=== PATIENT | female | born 1955 | race Caucasian/White ===

== ENCOUNTER 2019-07-05 13:24 | Inpatient (IN) | payer OTHER ==
[2019-07-05] MEDS ORDERED: NORMAL SALINE 1000 ML 1,000 ML IV ONE ×2 (14:49→16:27)
--- NOTE | 2019-07-05 14:51 | ER Document Report ---
ED Medical Screen (RME) - General Chief Complaint: Abdominal Pain Stated Complaint: ABDOMINAL PAIN Time Seen by Provider: 07/05/19 14:40 Mode of Arrival: Ambulatory Information source: Patient Notes: Patient is a 63-year-old female presenting from her primary care provider's office with complaints of right upper quadrant pain. Patient reports that her primary care provider took blood and she had an elevated white blood count and they also did an ultrasound which showed gallstones and sludge. Patient reports her pain has been ongoing for 2 days. She denies any vomiting or diarrhea. Exam: Tenderness to palpation to the right upper quadrant. Exam limited due to position in triage. No acute distress noted. I have greeted and performed a rapid initial assessment of this patient. A comprehensive ED assessment and evaluation of the patient, analysis of test results and completion of the medical decision making process will be conducted by additional ED providers. I have specifically instructed the patient or family members with the patient to immediately return to any nursing staff should anything change in the patient's condition or with their chief complaint. This medical record was dictated with voice recognizing software. There may be grammatical, syntax errors that are unintended. TRAVEL OUTSIDE OF THE [place] IN LAST 30 DAYS: No - Related Data Allergies/Adverse Reactions: No Known Allergies Allergy (Verified 07/05/19 14:37) Physical Exam - Vital signs Vitals: Temp Pulse Resp BP Pulse Ox 98.6 F 100 18 113/69 95 07/05/19 13:44 07/05/19 13:44 07/05/19 13:44 07/05/19 13:44 07/05/19 13:44 Course - Vital Signs Vital signs: Temp Pulse Resp BP Pulse Ox 98.6 F 100 18 113/69 95 07/05/19 13:44 07/05/19 13:44 07/05/19 13:44 07/05/19 13:44 07/05/19 13:44
[2019-07-05 15:39] LABS: HEMATOCRIT 40.3 % (36.0-47.0); HEMOGLOBIN 13.5 g/dL (12.0-15.5); MEAN CORPUSCULAR HGB CONC 33.5 g/dL (32.0-36.0); MEAN CORPUSCULAR VOLUME 87 fl (80-97); PLATELET COUNT 341 10^3/uL (150-450); RED BLOOD COUNT 4.65 10^6/uL (3.72-5.28); RED CELL DISTRIBUTION WIDTH 13.9 % (11.5-14.0)
[2019-07-05 15:52] LABS: ALBUMIN 4.4 g/dL (3.5-5.0); ALKALINE PHOSPHATASE 97 U/L (38-126); ANION GAP 17 (5-19); ASPARTATE AMINO TRANSFERASE 20 U/L (14-36); BILIRUBIN,DIRECT 0.4 mg/dL (0.0-0.4); BILIRUBIN,TOTAL 1.2 mg/dL (0.2-1.3); BLOOD UREA NITROGEN 20 mg/dL (7-20); CALCIUM 10.3 mg/dL (8.4-10.2); CARBON DIOXIDE 26 mmol/L (22-30); CHLORIDE 91 mmol/L (98-107); GLUCOSE 214 mg/dL (75-110); POTASSIUM 4.1 mmol/L (3.6-5.0); TOTAL PROTEIN 8.2 g/dL (6.3-8.2)
[2019-07-05 16:01] LABS: ABSOLUTE LYMPHOCYTES# (MANUAL) 2.3 10^3/uL (0.5-4.7); ABSOLUTE MONOCYTES # (MANUAL) 1.7 10^3/uL (0.1-1.4); BAND NEUTROPHILS % (MANUAL) 3 % (3-5); BASOPHILS % (MANUAL) 1 % (0-2); EOSINOPHILS % (MANUAL) 1 % (0-6); LYMPHOCYTES % (MANUAL) 7 % (13-45); METAMYELOCYTES % (MANUAL) 1 % (0); MONOCYTES % (MANUAL) 5 % (3-13); PLATELET COMMENT ADEQUATE; RBC MORPHOLOGY COMMENT NORMO-CYTIC/CHROMIC; SEGMENTED NEUTROPHILS % (MAN) 82 % (42-78); TOTAL CELLS COUNTED 100
--- NOTE | 2019-07-05 16:06 | RADIOLOGY REPORT (SQ) ---
EXAM DESCRIPTION: U/S ABDOMEN LIMITED W/O DOP COMPLETED DATE/TIME: 07/05/2019 3:54 pm REASON FOR STUDY: RUQ pain COMPARISON: None. TECHNIQUE: Dynamic and static grayscale images acquired of the abdomen and recorded on PACS. Luicnao amirah selected color Doppler and spectral images recorded. LIMITATIONS: None. FINDINGS: PANCREAS: No masses. Visualized pancreatic duct normal caliber. LIVER: No masses. Echotexture normal. LIVER VASCULATURE: Normal directional flow of the main portal vein and hepatic veins. GALLBLADDER: The gallbladder is distended measuring up to 11 cm in diameter. There is pericholecysti c edema. The wall is thickened measured up to 3.7 mm. There are stones and sludge. ULTRASOUND-DETECTED AGUILAR'S SIGN: Negative. INTRAHEPATIC DUCTS AND COMMON DUCT: CBD and intrahepatic ducts normal caliber. No filling defects. INFERIOR VENA CAVA: Normal flow. AORTA: No aneurysm. RIGHT KIDNEY: Normal size. Normal echogenicity. No solid or suspicious masses. No hydronephrosis. No calcifications. PERITONEAL AND RIGHT PLEURAL SPACE: No ascites or effusions. OTHER: No other significant finding. IMPRESSION: Cholelithiasis. Thickened gallbladder wall and pericholecystic fluid. Negative sonogra phic Aguilar sign. Findings remain suspicious for acute cholecystitis. TECHNICAL DOCUMENTATION: JOB ID: [id number] [employer]- All Rights Reserved Reading location - IP/workstation name: [email or web address]
[2019-07-05] MEDS ORDERED: PIPERACILLIN/TAZOBACTAM 3.375 GM VIAL IV ONE (16:19)
--- NOTE | 2019-07-05 16:26 | ER Document Report ---
ED General - General Chief Complaint: Abdominal Pain Stated Complaint: ABDOMINAL PAIN Time Seen by Provider: 07/05/19 14:40 Mode of Arrival: Ambulatory TRAVEL OUTSIDE OF THE [place] IN LAST 30 DAYS: No - HPI Notes: Patient is a 63-year-old female with history of CVA (on baby aspirin daily), hypertension, hypercholesterolemia, type 2 diabetes who presents complaining of right upper quadrant abdominal pain for the past 2 days with decreased p.o. intake. Patient states that she did have nausea and vomiting initially, but has not had anything p.o. so is not aware if she will still want to vomit. Patient was sent by her family doctor as they noticed an elevated white count, stones, and sludge on ultrasound. The pain does not radiate. She still urinating normally and having normal bowel movements. Denies drug allergies. No other concerns or complaints. Denies any headache, fever, neck pain, URI, sore throat, chest pain, palpitations, syncope, cough, shortness of breath, wheeze, dyspnea, nausea/vomiting/diarrhea, urinary retention, dysuria, hematuria, or rash. - Related Data Allergies/Adverse Reactions: No Known Allergies Allergy (Verified 07/05/19 14:37) Past Medical History - General Information source: Patient - Social History Smoking Status: Never Smoker Family History: Reviewed & Not Pertinent Patient has suicidal ideation: No Patient has homicidal ideation: No Review of Systems - Review of Systems -: Yes All other systems reviewed and negative Physical Exam - Vital signs Vitals: Temp Pulse Resp BP Pulse Ox 98.6 F 100 18 113/69 95 07/05/19 13:44 07/05/19 13:44 07/05/19 13:44 07/05/19 13:44 07/05/19 13:44 - Notes Notes: PHYSICAL EXAMINATION: GENERAL: Well-appearing, well-nourished and in no acute distress. HEAD: Atraumatic, normocephalic. EYES: Pupils equal round and reactive to light, extraocular movements intact, s clera anicteric, conjunctiva are normal. ENT: Nares patent and without discharge. oropharynx clear without exudates. No tonsilar hypertrophy or erythema. Moist mucous membranes. NECK: Normal range of motion, supple without lymphadenopathy LUNGS: Breath sounds clear to auscultation bilaterally and equal. No wheezes rales or rhonchi. HEART: Regular rate and rhythm without murmurs, rubs, gallops. ABDOMEN: Soft, nondistended abdomen. + RUQ tenderness. + mild guarding. Normal bowel sounds present. No CVA tenderness bilaterally. Musculoskeletal: FROM to passive/active. Strength 5+/5. Extremities: No cyanosis, clubbing, or edema b/l. Peripheral pulses 2+. Capillary refill less than 3 seconds. NEUROLOGICAL: Normal speech, normal gait. PSYCH: Normal mood, normal affect. SKIN: Warm, Dry, normal turgor, no rashes or lesions noted. Course - Re-evaluation Re-evalutation: 07/05/19 16:24 Patient is an afebrile 63-year-old female who presents with acute cholecystitis and leukocytosis. Vitals are acceptable without significant tachycardia, tachypnea, or hypoxia. PE significant for right upper quadrant tenderness. Patient has an elevated white count at 33,000 and a creatinine of 1.73. There are no previous labs to compare to. LFTs otherwise unremarkable at this time. See right upper quadrant abdominal ultrasound results which shows acute cholecystitis. Patient is currently otherwise nontoxic-appearing. Patient has been n.p.o. for the past couple days. Patient receiving fluids. She does not want anything for any pain or nausea at this time. I did call and speak with our surgeon, Dr. Wynn, who would like [facility] as well. He would like medicine to admit for probable surgery in the morning. I called and spoke with Dr. Colindres, hospitalist, who will review the protocol on who should be admitting this patient and call me back. Pt in agreement with plan otherwise. 07/05/19 16:38 Dr. Granados will be admitting the patient and is here to eval the patient. - Vital Signs Vital signs: Temp Pulse Resp BP Pulse Ox 98.6 F 100 18 113/69 95 07/05/19 13:44 07/05/19 13:44 07/05/19 13:44 07/05/19 13:44 07/05/19 13:44 - Laboratory Result Diagrams: 07/05/19 15:20 07/05/19 15:20 Laboratory results interpreted by me: 07/05/19 07/05/19 15:20 15:20 WBC 33.3 H* Seg Neuts % (Manual) 82 H Lymphocytes % (Manual) 7 L Metamyelocytes % 1 H Abs Neuts (Manual) 28.6 H Abs Monocytes (Manual) 1.7 H Abs Basophils (Manual) 0.3 H Sodium 134.4 L Chloride 91 L Creatinine 1.73 H Est GFR ( Amer) 36 L Est GFR (MDRD) Non-Af 30 L Glucose 214 H Calcium 10.3 H Discharge - Discharge Clinical Impression: Acute cholecystitis Leukocytosis Qualifiers: Leukocytosis type: bandemia Qualified Code(s): D72.825 - Bandemia Condition: Stable Disposition: ADMITTED INPATIENT Admitting Provider: Darwin (Hospitalist) Unit Admitted: [facility]
[2019-07-05] MEDS ORDERED: ONDANSETRON HCL INJ/PF 4 MG/2 ML SDV IV PRN (17:10)
--- NOTE | 2019-07-05 17:10 | PDOC H&P ---
History of Present Illness Admission Date/PCP: HONEY QUINTANILLA MD History of Present Illness: DEANA WHEAT is a 63 year old patient female with past medical history of obesity, hypertension, hyperlipidemia, history of stroke 9 years ago, type 2 diabetes mellitus hypertension presented with chief complaint of right upper quadrant. Patient reported that she has been in her usual baseline state of health up until when she started to have right upper quadrant pain exacerbated by movement and palpation. For this problem patient visited her primary care physician office where they did ultrasound and referred to ER. Patient has associated nausea, vomiting and decreased appetite. The pain is nonradiating. Patient denies fever, chills, palpitation, diaphoresis, chest pain, cough. She endorses nausea and vomiting but no diarrhea or change in bowel habits. No urinary complaints as well. No headache, dizziness or blurry vision. Her abdominal ultrasound reported as cholelithiasis. Thickened gallbladder wall and pericholecystic fluid. Her white cell count is 33,000 and her creatinine is 1.73. Surgical team consulted and referred with the patient to the hospitalist for admission since patient has underlying comorbidities. Past Medical History Cardiac Medical History: Reports: Hyperlipidema, Hypertension Endocrine Medical History: Reports: Diabetes Mellitus Type 2 Social History Smoking Status: Never Smoker Frequency of Alcohol Use: None Hx Recreational Drug Use: No - Advance Directive Resuscitation Status: Full Code Family History Family History: Reviewed & Not Pertinent, DM, Hypertension Parental Family History Reviewed: Yes Children Family History Reviewed: Yes Sibling(s) Family History Reviewed.: Yes Medication/Allergy Allergies/Adverse Reactions: No Known Allergies Allergy (Verified 07/05/19 14:37) Review of Systems Constitutional: PRESENT: anorexia Eyes: ABSENT: visual disturbances Ears: ABSENT: hearing changes Cardiovascular: ABSENT: chest pain, dyspnea on exertion, edema, orthropnea, palpitations Respiratory: ABSENT: cough, hemoptysis Gastrointestinal: PRESENT: abdominal pain, nausea, vomiting Genitourinary: ABSENT: dysuria, hematuria Musculoskeletal: ABSENT: joint swelling Integumentary: ABSENT: rash, wounds Neurological: ABSENT: abnormal gait, abnormal speech, confusion, dizziness, focal weakness, syncope Psychiatric: ABSENT: anxiety, depression, homidical ideation, suicidal ideation Endocrine: ABSENT: cold intolerance, heat intolerance, polydipsia, polyuria Hematologic/Lymphatic: ABSENT: easy bleeding, easy bruising Physical Exam Vital Signs: Temp Pulse Resp BP Pulse Ox 98.6 F 100 18 113/69 95 07/05/19 13:44 07/05/19 13:44 07/05/19 13:44 07/05/19 13:44 07/05/19 13:44 Intake & Output 07/04/19 07/05/19 07/06/19 06:59 06:59 06:59 Intake Total 1000 Balance 1000 Weight 93.2 kg General appearance: PRESENT: cooperative, obese Head exam: PRESENT: atraumatic Eye exam: PRESENT: conjunctiva pink Mouth exam: PRESENT: dry mucosa Neck exam: ABSENT: carotid bruit, JVD, lymphadenopathy, thyromegaly Respiratory exam: PRESENT: clear to auscultation carlos. ABSENT: rales, rhonchi, wheezes Cardiovascular exam: PRESENT: RRR. ABSENT: diastolic murmur, rubs, systolic murmur GI/Abdominal exam: PRESENT: guarding Neurological exam: PRESENT: alert, awake, oriented to person, oriented to place, oriented to time, oriented to situation Results Laboratory Results: 07/05/19 15:20 07/05/19 15:20 07/05/19 07/05/19 15:20 15:20 WBC 33.3 H* RBC 4.65 Hgb 13.5 Hct 40.3 MCV 87 MCH 29.0 MCHC 33.5 RDW 13.9 Plt Count 341 Seg Neutrophils % Not Reportable Sodium 134.4 L Potassium 4.1 Chloride 91 L Carbon Dioxide 26 Anion Gap 17 BUN 20 Creatinine 1.73 H Est GFR ( Amer) 36 L Glucose 214 H Calcium 10.3 H Total Bilirubin 1.2 AST 20 Alkaline Phosphatase 97 Total Protein 8.2 Albumin 4.4 Lipase 30.4 Impressions: Abdomen Ultrasound 07/05/19 14:49 IMPRESSION: Cholelithiasis. Thickened gallbladder wall and pericholecystic fluid. Negative sonographic Aguilar sign. Findings remain suspicious for acute cholecystitis. Assessment and Plan - Diagnosis (1) Acute cholecystitis Is this a current diagnosis for this admission?: Yes Plan: Patient has been started on IV Zosyn. Patient scheduled for possible laparoscopic cholecystectomy tomorrow. (2) Leukocytosis Qualifiers: Leukocytosis type: bandemia Qualified Code(s): D72.825 - Bandemia Is this a current diagnosis for this admission?: Yes Plan: We will monitor her white cell count. (3) Acute kidney injury Is this a current diagnosis for this admission?: Yes Plan: We will hydrate the patient gently and will avoid nephrotoxic agents. Monitor her renal function test. (4) Type 2 diabetes mellitus Is this a current diagnosis for this admission?: Yes Plan: Patient takes Januvia and metformin for her diabetes. I will hold her oral diabetic medication and put her on sliding scale. (5) Hypertension Qualifiers: Hypertension type: essential hypertension Qualified Code(s): I10 - Essential (primary) hypertension Is this a current diagnosis for this admission?: Yes Plan: Continue her home medication (6) Hyperlipidemia Qualifiers: Hyperlipidemia type: unspecified Qualified Code(s): E78.5 - Hyperlipidemia, unspecified Is this a current diagnosis for this admission?: Yes Plan: Continue her home medication (7) Obesity (BMI 30.0-34.9) Is this a current diagnosis for this admission?: Yes Plan: Patient encouraged and counseled to do lifestyle modification.
[2019-07-05] MEDS ORDERED: DEXTROSE 40% GEL 15 GM TUBE PO PRN ×2 (17:16)
[2019-07-05] MEDS ORDERED: GLUCAGON,HUMAN RECOMB 1 MG INJ IM PRN (17:16)
[2019-07-05] MEDS ORDERED: DEXTROSE 50%-WATER 25 GM/50 ML DISP.SYRIN IV PRN ×2 (17:16)
--- NOTE | 2019-07-05 17:37 | PDOC CONSULTATION ---
Consultation Consult Date: 07/05/19 Provider Consulted: KATHIE WINCHESTER Consult reason:: acute calculus cholecystitis History of Present Illness Admission Date/PCP: 07/05/19 16:56 HONEY QUINTNAILLA MD History of Present Illness: DEANA WHEAT is a 63 year old female with his history of diabetes mellitus on Januvia complain of right upper quadrant pains associated with nausea and vomiting and anorexia started 2 days ago. Denies any fever or chills. Denies fatty food intolerance. She had an ultrasound today which showed acute calculus cholecystitis. Her white count is elevated and she appears to be slightly dehydrated. Past Medical History Cardiac Medical History: Reports: Hyperlipidema, Hypertension Endocrine Medical History: Reports: Diabetes Mellitus Type 2 Past Surgical History Past Surgical History: Reports: Hysterectomy, Other - Laparoscopic umbilical hernia repair in 2008 with possible use of mesh Social History Smoking Status: Never Smoker Frequency of Alcohol Use: None Hx Recreational Drug Use: No - Advance Directive Resuscitation Status: Full Code Family History Family History: Reviewed & Not Pertinent, DM, Hypertension Parental Family History Reviewed: Yes Children Family History Reviewed: No Sibling(s) Family History Reviewed.: No Medication/Allergy Allergies/Adverse Reactions: No Known Allergies Allergy (Verified 07/05/19 14:37) Review of Systems Constitutional: PRESENT: as per HPI Gastrointestinal: PRESENT: abdominal pain, nausea, vomiting Physical Exam Vital Signs: Temp Pulse Resp BP Pulse Ox 98.6 F 100 18 113/69 95 07/05/19 13:44 07/05/19 13:44 07/05/19 13:44 07/05/19 13:44 07/05/19 13:44 Intake & Output 07/04/19 07/05/19 07/06/19 06:59 06:59 06:59 Intake Total 1000 Balance 1000 Weight 93.2 kg General appearance: PRESENT: mild distress Head exam: PRESENT: atraumatic Eye exam: PRESENT: conjunctiva pink Mouth exam: PRESENT: dry mucosa Neck exam: PRESENT: full ROM Respiratory exam: PRESENT: clear to auscultation carlos Cardiovascular exam: PRESENT: RRR Pulses: PRESENT: normal radial pulses Vascular exam: PRESENT: normal capillary refill GI/Abdominal exam: PRESENT: soft, tenderness - At right upper quadrant and epigastric areas Rectal exam: PRESENT: deferred Extremities exam: PRESENT: full ROM Musculoskeletal exam: PRESENT: ambulatory Neurological exam: PRESENT: alert, oriented to person, oriented to place, oriented to time, oriented to situation Psychiatric exam: PRESENT: appropriate affect Skin exam: PRESENT: normal color, warm Results Laboratory Results: 07/05/19 15:20 07/05/19 15:20 07/05/19 07/05/19 15:20 15:20 WBC 33.3 H* RBC 4.65 Hgb 13.5 Hct 40.3 MCV 87 MCH 29.0 MCHC 33.5 RDW 13.9 Plt Count 341 Seg Neutrophils % Not Reportable Sodium 134.4 L Potassium 4.1 Chloride 91 L Carbon Dioxide 26 Anion Gap 17 BUN 20 Creatinine 1.73 H Est GFR ( Amer) 36 L Glucose 214 H Calcium 10.3 H Total Bilirubin 1.2 AST 20 Alkaline Phosphatase 97 Total Protein 8.2 Albumin 4.4 Lipase 30.4 Impressions: Abdomen Ultrasound 07/05/19 14:49 IMPRESSION: Cholelithiasis. Thickened gallbladder wall and pericholecystic fluid. Negative sonographic Aguilar sign. Findings remain suspicious for acute cholecystitis. Assessment & Plan - Diagnosis (1) Cholelithiasis Is this a current diagnosis for this admission?: Yes (2) Acute cholecystitis Is this a current diagnosis for this admission?: Yes (3) Acute kidney injury Is this a current diagnosis for this admission?: Yes (4) Hypertension Qualifiers: Hypertension type: essential hypertension Qualified Code(s): I10 - Essential (primary) hypertension Is this a current diagnosis for this admission?: Yes (5) Leukocytosis Qualifiers: Leukocytosis type: bandemia Qualified Code(s): D72.825 - Bandemia Is this a current diagnosis for this admission?: Yes (6) Obesity (BMI 30.0-34.9) Is this a current diagnosis for this admission?: Yes (7) Type 2 diabetes mellitus Is this a current diagnosis for this admission?: Yes - Time Time Spent: 30 to 50 Minutes - Inpatient Certification Medical Necessity: Need For IV Fluids, Need for IV Antibiotics, Need for Surgery - Plan Summary Plan Summary: Plan on laparoscopic cholecystectomy tomorrow morning care of Dr. Salazar Continue IV antibiotics and n.p.o. from midnight Continue hydration Repeat labs in a.m.
--- NOTE | 2019-07-05 17:42 | RADIOLOGY REPORT (SQ) ---
EXAM DESCRIPTION: CHEST SINGLE VIEW COMPLETED DATE/TIME: 07/05/2019 5:32 pm REASON FOR STUDY: preop COMPARISON: None. EXAM PARAMETERS: NUMBER OF VIEWS: One view. TECHNIQUE: Single frontal radiographic view of the chest acquired. RADIATION DOSE: NA LIMITATIONS: None. FINDINGS: LUNGS AND PLEURA: No opacities, masses or pneumothorax. No pleural effusion. MEDIASTINUM AND HILAR STRUCTURES: No masses. Contour normal. HEART AND VASCULAR STRUCTURES: Heart normal in size. Normal vasculature. BONES: No acute findings. HARDWARE: None in the chest. OTHER: No other significant finding. IMPRESSION: NO ACUTE RADIOGRAPHIC FINDING IN THE CHEST. TECHNICAL DOCUMENTATION: JOB ID: [id number] [employer]- All Rights Reserved Reading location - IP/workstation name: [email or web address]
[2019-07-05] MEDS: PANTOPRAZOLE SODIUM 40 MG VIAL IV SCH (17:52)
[2019-07-05 20:57] LABS: APPEARANCE,URINE CLEAR; BILIRUBIN,URINE NEGATIVE (NEGATIVE); COLOR,URINE YELLOW; GLUCOSE, URINE NEGATIVE (NEGATIVE); KETONES,URINE NEGATIVE (NEGATIVE); LEUKOCYTE ESTERASE,URINE TRACE (NEGATIVE); NITRITE,URINE NEGATIVE (NEGATIVE); PROTEIN,URINE NEGATIVE (NEGATIVE); URINE SPECIFIC GRAVITY 1.008; UROBILINOGEN,URINE NEGATIVE mg/dL (<2.0)
[2019-07-05] MEDS: HEPARIN SOD (PORCINE) 5,000 UNIT/ML 1 ML VIAL SUBCUT SCH (21:05)
[2019-07-05] MEDS ORDERED: (PENDING PHARMACY ID) (Diltiazem Hcl [Diltiazem 24hr Er] 240 MG) PO SCH (22:00)
[2019-07-05] MEDS: PIPERACILLIN SODIUM/TAZOBACTAM 4.5 GM in NORMAL SALINE 100 ML IV SCH (22:10)
[2019-07-05] MEDS: DILTIAZEM HCL 240 MG CAPSULE.CR PO SCH (22:11)
[2019-07-05] MEDS: ATORVASTATIN CALCIUM 20 MG TABLET PO SCH (22:11)
[2019-07-05] MEDS: METOPROLOL TARTRATE 25 MG TABLET PO SCH (22:11)
[2019-07-05] MEDS: INSULIN LISPRO 100 UNIT/ML 3 ML VIAL SUBCUT SCH ×2 (22:12→22:19)
[2019-07-06] MEDS: NORMAL SALINE 1000 ML 1,000 ML IV PRN ×4 (02:07→19:15)
[2019-07-06] MEDS: PIPERACILLIN SODIUM/TAZOBACTAM 4.5 GM in NORMAL SALINE 100 ML IV SCH ×4 (03:41→17:46)
[2019-07-06] MEDS: HEPARIN SOD (PORCINE) 5,000 UNIT/ML 1 ML VIAL SUBCUT SCH ×3 (05:04→22:24)
[2019-07-06 06:20] LABS: HEMATOCRIT 31.8 % (36.0-47.0); MEAN CORPUSCULAR HEMOGLOBIN 28.9 pg (27.0-33.4); MEAN CORPUSCULAR HGB CONC 33.6 g/dL (32.0-36.0); MEAN CORPUSCULAR VOLUME 86 fl (80-97); PLATELET COUNT 223 10^3/uL (150-450); RED BLOOD COUNT 3.69 10^6/uL (3.72-5.28); RED CELL DISTRIBUTION WIDTH 14.2 % (11.5-14.0); WHITE BLOOD COUNT 19.4 10^3/uL (4.0-10.5)
[2019-07-06 06:25] LABS: HEMOGLOBIN 10.7 g/dL (12.0-15.5)
[2019-07-06 06:30] LABS: ANION GAP 12 (5-19); BLOOD UREA NITROGEN 19 mg/dL (7-20); CALCIUM 8.3 mg/dL (8.4-10.2); CARBON DIOXIDE 23 mmol/L (22-30); CHLORIDE 102 mmol/L (98-107); GLUCOSE 198 mg/dL (75-110); POTASSIUM 3.3 mmol/L (3.6-5.0)
[2019-07-06 06:47] LABS: ABSOLUTE LYMPHOCYTES# (MANUAL) 0.6 10^3/uL (0.5-4.7); ABSOLUTE MONOCYTES # (MANUAL) 2.9 10^3/uL (0.1-1.4); BASOPHILS % (MANUAL) 0 % (0-2); EOSINOPHILS % (MANUAL) 1 % (0-6); LYMPHOCYTES % (MANUAL) 3 % (13-45); MONOCYTES % (MANUAL) 15 % (3-13); SEGMENTED NEUTROPHILS % (MAN) 81 % (42-78); TOTAL CELLS COUNTED 100
[2019-07-06 06:48] LABS: PLATELET COMMENT ADEQUATE; RBC MORPHOLOGY COMMENT NORMO-CYTIC/CHROMIC; TOXIC VACUOLATION PRESENT
[2019-07-06] MEDS ORDERED: BUPIVACAINE HCL 0.25 % INJ/PF (2.5 MG/1 ML) 30 ML VIAL ONE (07:40)
[2019-07-06] MEDS: INSULIN LISPRO 100 UNIT/ML 3 ML VIAL SUBCUT SCH ×4 (08:24→22:26)
[2019-07-06] MEDS ORDERED: MIDAZOLAM 2 MG/2 ML INJ ONE (08:25)
[2019-07-06] MEDS ORDERED: HYDROMORPHONE HCL INJ/PF 2 MG/ML AMPULE ONE (08:25)
[2019-07-06] MEDS ORDERED: PROPOFOL INJ 200 MG/20 ML VIAL IV ONE (08:26)
[2019-07-06] MEDS ORDERED: FENTANYL CITRATE INJ/PF 100 MCG/2 ML AMPUL IV PRN ×3 (09:35)
[2019-07-06] MEDS ORDERED: PROMETHAZINE HCL INJ 25 MG/1 ML VIAL IV PRN ×2 (09:35)
[2019-07-06] MEDS ORDERED: ONDANSETRON HCL INJ/PF 4 MG/2 ML SDV IV PRN ×2 (09:35→10:54)
[2019-07-06] MEDS ORDERED: DIPHENHYDRAMINE HCL 50 MG/ML VIAL IV PRN (09:35)
--- NOTE | 2019-07-06 09:54 | EKG REPORT ---
SEVERITY:- BORDERLINE ECG - SINUS RHYTHM BORDERLINE T ABNORMALITIES, ANT-LAT LEADS : Confirmed by: Anoop Lancaster MD 06-Jul-2019 09:53:37
[2019-07-06] MEDS ORDERED: (PENDING PHARMACY ID) (Losartan/Hydrochlorothiazide [Losartan-Hctz 100-25 Mg Tab] 1 EACH) PO SCH (10:00)
[2019-07-06] MEDS ORDERED: KETOROLAC TROMETHAMINE 10 MG TABLET PO PRN (10:54)
--- NOTE | 2019-07-06 10:54 | Operative Report ---
Operative Report DATE OF SURGERY: 07/06/19 PREOPERATIVE DIAGNOSIS: Acute cholecystitis with cholelithiasis; dehydration; A cute renal insufficiency POSTOPERATIVE DIAGNOSIS: same OPERATION: Laparoscopic cholecystectomy; drain placement; extremely difficult modifier SURGEON: TRINITY FAJARDO ANESTHESIA: GA TISSUE REMOVED OR ALTERED: one GB with contents COMPLICATIONS: none ESTIMATED BLOOD LOSS: 150 cc INTRAOPERATIVE FINDINGS: see below PROCEDURE: After obtaining informed consent, the patient was taken to the operating room. General Anesthesia was induced; the arms were extended, and the abdomen was exposed, and prepped and draped in a sterile fashion. Instrumentation was set up for laparoscopic cholecystectomy. Surgical plan and surgical timeout were conducted. A vertical incision was made above the umbilicus, and a verres needle was inserted uneventfully into the peritoneal cavity. Pneumoperitoneum was established. The verres needle was removed and a 5 mm trocar was inserted and a 5 mm flexible laparoscope was inserted. Visualization of the peritoneal cavity confirmed safe uneventful entry. Under direct visualization 3 additional 5 mm ports were established, one in the subxiphoid position and second in the subcostal position. The findings were significant for an acutely inflamed gallbladder, consistent with acute cholecystitis. The gallbladder was a elongated, thickened, erythematous. Photos were taken. The gastroduodenal ligament, and the proximal transverse colon were bluntly taken off of the inferior surface of the gallbladder. The gallbladder was aspirated of approximately 60 cc of bile. Graspers were placed on the fundus and infundibulum of the neck of the gallbladder dissected out. This is a very tedious dissection requiring extended amount of time, suctioning, and electrocautery. We eventually got around the dominant cystic artery and it was dissected out nicely clipped twice proximally once distally divided with scissors. TriAngle of Calot was now opened up widely and photographs taken. Holes were made in the gallbladder which drained some more bile, and a small hole in the neck of the gallbladder as well. The cystic duct itself was approximately 4 to 5 mm diameter. It was photographed, clipped twice proximally once distally then divided with scissors. We now spent approximately 40 minutes taking the gallbladder off of the liver bed. This was extremely difficult due to the density of adhesions. Approximately 150 cc of blood was lost during the process. High intensity electrocautery, and Surgicel used for stabilization. There was a posterior branch of the cystic artery which was clipped and divided. 95% of the gallbladder was removed, with a very small portion of wall and mucosa left cauterized to the inferior surface of the liver. Gallbladder was pulled off away from the liver in fragments. It was placed in Endobag along with the very large gallstone and brought out of the patient to the supraumbilical port site after opening the fascia with Aislinn clamps We returned the peritoneal cavity checked for bleeding and there was some venous oozing coming from the inferior surface of the liver. Again this was addressed with electrocautery. A large Juan drain was placed to the right upper quadrant port site and secured to skin with 2-0 Prolene suture. The functional and was placed in the subhepatic space. We level the patient out irrigated the peritoneal cavity with several liters of saline. We felt the mechanical bleeding abated. At this point we felt the operation was complete. We returned to the peritoneal cavity check for bleeding, and evidence of bile leak, and there was none. We Confirmed satisfactory placement of clips on cystic duct and cystic artery were secured . The subcutaneous tissue was then anesthetized with quarter percent Marcaine Sponge and needle counts are correct. All ports removed under direct visualization pneumoperitoneum evacuated, the supraumbilical port site closed with a 0 Vicryl suture, and 5 mm port wounds closed with 3-0 Vicryl suture, benzoin and Steri-Strips. The patient was extubated, and taken to the recovery room in stable condition.
--- NOTE | 2019-07-06 11:35 | PDOC PROGRESS REPORT ---
Subjective Progress Note for:: 07/06/19 Subjective:: DEANA WHEAT is a 63 year old patient female with past medical history of obesity, hypertension, hyperlipidemia, history of stroke 9 years ago, type 2 diabetes mellitus hypertension presented with chief complaint of right upper quadrant. Patient reported that she has been in her usual baseline state of health up until when she started to have right upper quadrant pain exacerbated by movement and palpation. For this problem patient visited her primary care physician office where they did ultrasound and referred to ER. Patient has associated nausea, vomiting and decreased appetite. The pain is nonradiating. Patient denies fever, chills, palpitation, diaphoresis, chest pain, cough. She endorses nausea and vomiting but no diarrhea or change in bowel habits. No urinary complaints as well. No headache, dizziness or blurry vision. Her abdominal ultrasound reported as cholelithiasis. Thickened gallbladder wall and pericholecystic fluid. Her white cell count is 33,000 and her creatinine is 1.73. Surgical team consulted and referred with the patient to the hospitalist for admission since patient has underlying comorbidities. 07/06/2019: Patient just arrived from [place] after she undergone laparoscopic cholecystectomy. Her immediate postop is smooth. I reviewed her labs and it shows that her white cell count is markedly decreased yesterday to 33,000 today it is 19,000. Her infection also improved which is reflected in her creatinine it was 1.73 yesterday now 1.32. We will continue aggressive hydration and pain control. Reason For Visit: ACUTE CHOLECYSTITIS,ACUTE KIDNEY INJURY Physical Exam Vital Signs: Temp Pulse Resp BP Pulse Ox 98.3 F 81 12 163/70 H 95 07/06/19 10:34 07/06/19 11:04 07/06/19 11:04 07/06/19 11:04 07/06/19 11:04 Intake & Output 07/05/19 07/06/19 07/07/19 06:59 06:59 06:59 Intake Total 2200 4050 Output Total 1800 Balance 2200 2250 Weight 93.4 kg General appearance: PRESENT: no acute distress, obese Eye exam: PRESENT: conjunctiva pink Neck exam: ABSENT: carotid bruit, JVD, lymphadenopathy, thyromegaly Respiratory exam: PRESENT: clear to auscultation carlos. ABSENT: rales, rhonchi, wheezes Cardiovascular exam: PRESENT: RRR. ABSENT: diastolic murmur, rubs, systolic murmur GI/Abdominal exam: PRESENT: normal bowel sounds, soft. ABSENT: distended, guarding, mass, organolmegaly, rebound, tenderness Neurological exam: PRESENT: alert, awake, oriented to person, oriented to place, oriented to time, oriented to situation Results Laboratory Results: 07/06/19 05:29 07/06/19 05:29 07/05/19 07/05/19 07/05/19 15:20 15:20 16:50 WBC 33.3 H* RBC 4.65 Hgb 13.5 Hct 40.3 MCV 87 MCH 29.0 MCHC 33.5 RDW 13.9 Plt Count 341 Seg Neutrophils % Not Reportable Sodium 134.4 L Potassium 4.1 Chloride 91 L Carbon Dioxide 26 Anion Gap 17 BUN 20 Creatinine 1.73 H Est GFR ( Amer) 36 L Glucose 214 H Lactic Acid 3.0 H Calcium 10.3 H Total Bilirubin 1.2 AST 20 Alkaline Phosphatase 97 Total Protein 8.2 Albumin 4.4 Lipase 30.4 Urine Color Urine Appearance Urine pH Ur Specific [place] Urine Protein Urine Glucose (UA) Urine Ketones Urine Blood Urine Nitrite Ur Leukocyte Esterase Urine WBC (Auto) Urine RBC (Auto) 07/05/19 07/05/19 07/06/19 20:30 22:41 05:29 WBC 19.4 H RBC 3.69 L Hgb 10.7 L D Hct 31.8 L MCV 86 MCH 28.9 MCHC 33.6 RDW 14.2 H Plt Count 223 Seg Neutrophils % Not Reportable Sodium Potassium Chloride Carbon Dioxide Anion Gap BUN Creatinine Est GFR ( Amer) Glucose Lactic Acid 1.3 Calcium Total Bilirubin AST Alkaline Phosphatase Total Protein Albumin Lipase Urine Color YELLOW Urine Appearance CLEAR Urine pH 5.0 Ur Specific [place] 1.008 Urine Protein NEGATIVE Urine Glucose (UA) NEGATIVE Urine Ketones NEGATIVE Urine Blood NEGATIVE Urine Nitrite NEGATIVE Ur Leukocyte Esterase TRACE H Urine WBC (Auto) 5 Urine RBC (Auto) 1 07/06/19 05:29 WBC RBC Hgb Hct MCV MCH MCHC RDW Plt Count Seg Neutrophils % Sodium 137.3 Potassium 3.3 L Chloride 102 Carbon Dioxide 23 Anion Gap 12 BUN 19 Creatinine 1.32 H Est GFR ( Amer) 49 L Glucose 198 H Lactic Acid Calcium 8.3 L Total Bilirubin AST Alkaline Phosphatase Total Protein Albumin Lipase Urine Color Urine Appearance Urine pH Ur Specific [place] Urine Protein Urine Glucose (UA) Urine Ketones Urine Blood Urine Nitrite Ur Leukocyte Esterase Urine WBC (Auto) Urine RBC (Auto) Impressions: Abdomen Ultrasound 07/05/19 14:49 IMPRESSION: Cholelithiasis. Thickened gallbladder wall and pericholecystic fluid. Negative sonographic Aguilar sign. Findings remain suspicious for acute cholecystitis. Chest X-Ray 07/05/19 16:37 IMPRESSION: NO ACUTE RADIOGRAPHIC FINDING IN THE CHEST. Assessment and Plan - Diagnosis (1) Acute cholecystitis Is this a current diagnosis for this admission?: Yes Plan: Status post laparoscopic cholecystectomy. This most immediate postop. (2) Leukocytosis Qualifiers: Leukocytosis type: bandemia Qualified Code(s): D72.825 - Bandemia Is this a current diagnosis for this admission?: Yes Plan: Trending down markedly (3) Acute kidney injury Is this a current diagnosis for this admission?: Yes Plan: Her creatinine has been improving. Yesterday it was 1.73 today it is 1.32. Continue hydration and monitor her renal function. (4) Type 2 diabetes mellitus Is this a current diagnosis for this admission?: Yes Plan: We will keep her on sliding scale and patient resume p.o. feeding. (5) Hypertension Qualifiers: Hypertension type: essential hypertension Qualified Code(s): I10 - Essential (primary) hypertension Is this a current diagnosis for this admission?: Yes Plan: Continue her home medication (6) Hyperlipidemia Qualifiers: Hyperlipidemia type: unspecified Qualified Code(s): E78.5 - Hyperlipidemia, unspecified Is this a current diagnosis for this admission?: Yes Plan: Continue her home medication (7) Obesity (BMI 30.0-34.9) Is this a current diagnosis for this admission?: Yes Plan: Patient encouraged and counseled to do lifestyle modification.
[2019-07-06] MEDS: ACETAMINOPHEN INJ/PF 1000 MG/100 ML SDV IV SCH ×2 (13:13→17:46)
[2019-07-06] MEDS: SERTRALINE HCL 50 MG TABLET PO SCH (13:13)
[2019-07-06] MEDS: DILTIAZEM HCL 240 MG CAPSULE.CR PO SCH ×2 (13:14→22:31)
[2019-07-06] MEDS: METOPROLOL TARTRATE 25 MG TABLET PO SCH ×2 (13:14→22:31)
[2019-07-06] MEDS: HYDROCHLOROTHIAZIDE 25 MG TABLET PO SCH (13:14)
[2019-07-06] MEDS: EZETIMIBE 10 MG TABLET PO SCH (13:14)
[2019-07-06] MEDS: LOSARTAN POTASSIUM 50 MG TABLET PO SCH (13:14)
[2019-07-06] MEDS ORDERED: METOCLOPRAMIDE HCL INJ/PF 10 MG/2 ML SDV ONE (14:38)
[2019-07-06] MEDS ORDERED: LIDOCAINE 2% INJ-PF (20 MG/ML) 2 ML AMPUL ONE (14:38)
[2019-07-06] MEDS ORDERED: ROCURONIUM BROMIDE INJ 50 MG/5 ML VIAL IV ONE (14:38)
[2019-07-06] MEDS ORDERED: GLYCOPYRROLATE 1 MG/5 ML VIAL ONE (14:38)
[2019-07-06] MEDS ORDERED: KETOROLAC TROMETHAMINE 60 MG/2 ML SDV ONE (14:38)
[2019-07-06] MEDS ORDERED: NEOSTIGMINE METHYLSULFATE 10 MG/10 ML VIAL ONE (14:38)
[2019-07-06] MEDS ORDERED: ONDANSETRON HCL INJ/PF 4 MG/2 ML SDV ONE (14:38)
[2019-07-06] MEDS: PANTOPRAZOLE SODIUM 40 MG VIAL IV SCH (17:46)
[2019-07-06] MEDS ORDERED: LOVASTATIN 80 MG PO SCH (18:00)
[2019-07-06] MEDS: ATORVASTATIN CALCIUM 20 MG TABLET PO SCH (22:31)
[2019-07-07] MEDS: ACETAMINOPHEN INJ/PF 1000 MG/100 ML SDV IV SCH ×2 (00:16→05:36)
[2019-07-07] MEDS: NORMAL SALINE 1000 ML 1,000 ML IV PRN (00:16)
[2019-07-07] MEDS: PIPERACILLIN SODIUM/TAZOBACTAM 4.5 GM in NORMAL SALINE 100 ML IV SCH ×2 (00:18→05:36)
[2019-07-07 04:55] LABS: ABSOLUTE BASOPHILS # (AUTO) 0.1 10^3/uL (0.0-0.2); ABSOLUTE EOSINOPHILS # (AUTO) 0.3 10^3/uL (0.0-0.6); ABSOLUTE MONOCYTES (AUTO) 1.2 10^3/uL (0.1-1.4); ABSOLUTE NEUT (AUTO) 11.5 10^3/uL (1.7-8.2); BASOPHILS % (AUTO) 0.5 % (0-2); EOSINOPHILS % (AUTO) 2.1 % (0-6); HEMATOCRIT 28.1 % (36.0-47.0); HEMOGLOBIN 9.3 g/dL (12.0-15.5); LYMPHOCYTES % (AUTO) 7.1 % (13-45); MEAN CORPUSCULAR HEMOGLOBIN 29.1 pg (27.0-33.4); MEAN CORPUSCULAR HGB CONC 33.1 g/dL (32.0-36.0); MEAN CORPUSCULAR VOLUME 88 fl (80-97); MONOCYTES % (AUTO) 8.7 % (3-13); PLATELET COUNT 207 10^3/uL (150-450); RED BLOOD COUNT 3.19 10^6/uL (3.72-5.28); SEGMENTED NEUTROPHILS % (AUTO) 81.6 % (42-78); TOTAL CELLS COUNTED % (AUTO) 100 %
[2019-07-07 05:15] LABS: ANION GAP 9 (5-19); BLOOD UREA NITROGEN 14 mg/dL (7-20); CALCIUM 7.9 mg/dL (8.4-10.2); CARBON DIOXIDE 23 mmol/L (22-30); CHLORIDE 107 mmol/L (98-107); GLUCOSE 148 mg/dL (75-110); POTASSIUM 3.4 mmol/L (3.6-5.0)
[2019-07-07] MEDS: HEPARIN SOD (PORCINE) 5,000 UNIT/ML 1 ML VIAL SUBCUT SCH (05:36)
[2019-07-07] MEDS: INSULIN LISPRO 100 UNIT/ML 3 ML VIAL SUBCUT SCH (07:55)
[2019-07-07 08:24] VITALS: BP 131/61
--- NOTE | 2019-07-07 09:41 | PDOC DISCHARGE SUMMARY ---
General - Admit/Disc Date/PCP Admission Date/Primary Care Provider: 07/05/19 16:56 HONEY QUINTANILLA MD Discharge Date: 07/07/19 - Discharge Diagnosis (1) Acute cholecystitis Is this a current diagnosis for this admission?: Yes (2) Leukocytosis Is this a current diagnosis for this admission?: Yes (3) Acute kidney injury Is this a current diagnosis for this admission?: Yes (4) Type 2 diabetes mellitus Is this a current diagnosis for this admission?: Yes (5) Hypertension Is this a current diagnosis for this admission?: Yes (6) Hyperlipidemia Is this a current diagnosis for this admission?: Yes (7) Obesity (BMI 30.0-34.9) Is this a current diagnosis for this admission?: Yes - Additional Information Resuscitation Status: Full Code Home Medications: Diltiazem HCl [Diltiazem ER] 240 mg PO Q12 07/05/19 Ezetimibe [Zetia 10 mg Tablet] 10 mg PO DAILY 07/05/19 Losartan/Hydrochlorothiazide [Losartan-Hctz 100-25 mg Tab] 1 each PO DAILY 07/05/19 Lovastatin [Altoprev] 80 mg PO QPM 07/05/19 Metoprolol Tartrate [Lopressor 25 mg Tablet] 25 mg PO Q12 07/05/19 Sertraline HCl [Zoloft] 150 mg PO DAILY 07/05/19 Sitagliptin Phos/Metformin HCl [Janumet 50-1,000 Mg Tablet] 1 each PO BID 06/08 History of Present Illness History of Present Illness: DEANA WHEAT is a 63 year old patient female with past medical history of obesity, hypertension, hyperlipidemia, history of stroke 9 years ago, type 2 diabetes mellitus hypertension presented with chief complaint of right upper quadrant. Patient reported that she has been in her usual baseline state of health up until when she started to have right upper quadrant pain exacerbated by movement and palpation. For this problem patient visited her primary care physician office where they did ultrasound and referred to ER. Patient has associated nausea, vomiting and decreased appetite. The pain is nonradiating. Patient denies fever, chills, palpitation, diaphoresis, chest pain, cough. She endorses nausea and vomiting but no diarrhea or change in bowel habits. No urinary complaints as well. No headache, dizziness or blurry vision. Her abdominal ultrasound reported as cholelithiasis. Thickened gallbladder wall and pericholecystic fluid. Her white cell count is 33,000 and her creatinine is 1.73. Surgical team consulted and referred with the patient to the hospitalist for admission since patient has underlying comorbidities. Hospital Course Hospital Course: DEANA WHEAT is a 63 year old patient female with past medical history of obesity, hypertension, hyperlipidemia, history of stroke 9 years ago, type 2 diabetes mellitus hypertension presented with chief complaint of right upper quadrant. Patient reported that she has been in her usual baseline state of health up until when she started to have right upper quadrant pain exacerbated by movement and palpation. For this problem patient visited her primary care physician office where they did ultrasound and referred to ER. Patient has associated nausea, vomiting and decreased appetite. The pain is nonradiating. Patient denies fever, chills, palpitation, diaphoresis, chest pain, cough. She endorses nausea and vomiting but no diarrhea or change in bowel habits. No urinary complaints as well. No headache, dizziness or blurry vision. Her abdominal ultrasound reported as cholelithiasis. Thickened gallbladder wall and pericholecystic fluid. Her white cell count is 33,000 and her creatinine is 1.73. Surgical team consulted and referred with the patient to the hospitalist for admission since patient has underlying comorbidities. 07/06/2019: Patient just arrived [place] after she undergone laparoscopic cholecystectomy. Her immediate postop is smooth. I reviewed her labs and it shows that her white cell count is markedly decreased yesterday to 33,000 today it is 19,000. Her infection also improved which is reflected in her creatinine it was 1.73 yesterday now 1.32. We will continue aggressive hydration and pain control. 07/07/2019: Patient seen and examined while she is resting in bed comfortably. She tolerates her breakfast. She does not have any nausea vomiting or fever. Her blood work shows that her white cell count at admission was 33,000 today it is 14 and her creatinine also trended down markedly to 1.11. She is reevaluated this morning by who cleared her for discharge.I will continue her home medication and send her with gilda and terra.She needs follow up at surgical clinic. Physical Exam Vital Signs: Temp Pulse Resp BP Pulse Ox 98.0 F 72 16 131/61 H 90 L 07/07/19 07:54 07/07/19 07:54 07/07/19 07:54 07/07/19 07:54 07/07/19 07:54 Intake & Output 07/06/19 07/07/19 07/08/19 06:59 06:59 06:59 Intake Total 2200 8234 Output Total 1835 Balance 2200 6399 Weight 93.4 kg 103.1 kg General appearance: PRESENT: no acute distress Eye exam: PRESENT: conjunctiva pink Mouth exam: PRESENT: dry mucosa Neck exam: ABSENT: carotid bruit, JVD, lymphadenopathy, thyromegaly Respiratory exam: PRESENT: clear to auscultation carlos. ABSENT: rales, rhonchi, wheezes GI/Abdominal exam: PRESENT: normal bowel sounds, soft. ABSENT: distended, guarding, mass, organolmegaly, rebound, tenderness Neurological exam: PRESENT: alert, awake, oriented to person, oriented to place, oriented to time, oriented to situation Results Laboratory Results: 07/07/19 04:29 07/07/19 04:29 07/07/19 07/07/19 04:29 04:29 WBC 14.0 H RBC 3.19 L Hgb 9.3 L Hct 28.1 L MCV 88 MCH 29.1 MCHC 33.1 RDW 14.0 Plt Count 207 Seg Neutrophils % 81.6 H Sodium 138.5 Potassium 3.4 L Chloride 107 Carbon Dioxide 23 Anion Gap 9 BUN 14 Creatinine 1.11 Est GFR ( Amer) > 60 Glucose 148 H Calcium 7.9 L Impressions: Abdomen Ultrasound 07/05/19 14:49 IMPRESSION: Cholelithiasis. Thickened gallbladder wall and pericholecystic fluid. Negative sonographic Aguilar sign. Findings remain suspicious for acute cholecystitis. Chest X-Ray 07/05/19 16:37 IMPRESSION: NO ACUTE RADIOGRAPHIC FINDING IN THE CHEST. Qualifiers - * PATIENT BEING DISCHARGED WITH ANY OF THE FOLLOWING DIAGNOSIS: No Acute Heart Failure - Is this a Heart Failure Patient?: No LVEF < 40%?: No- if no continue to question #3 3. Anticoagulant therapy for permanect/persistent/paraoxysmal Afib or Aflutter: N/A Follow-up Appointment scheduled within 7 days?: Yes
[2019-07-07] MEDS: HYDROCHLOROTHIAZIDE 25 MG TABLET PO SCH (09:42)
[2019-07-07] MEDS: LOSARTAN POTASSIUM 50 MG TABLET PO SCH (09:42)
[2019-07-07] MEDS: DILTIAZEM HCL 240 MG CAPSULE.CR PO SCH (09:42)
[2019-07-07] MEDS: SERTRALINE HCL 50 MG TABLET PO SCH (09:42)
[2019-07-07] MEDS: METOPROLOL TARTRATE 25 MG TABLET PO SCH (09:42)
[2019-07-07] MEDS: EZETIMIBE 10 MG TABLET PO SCH (09:42)
--- NOTE | 2019-07-07 09:49 | PDOC PROGRESS REPORT ---
Subjective Progress Note for:: 07/07/19 Subjective:: Patient feels better; voided; took p.o. diet. Drain put out 30 cc since surgery, serosanguineous Reason For Visit: ACUTE CHOLECYSTITIS,ACUTE KIDNEY INJURY Physical Exam Vital Signs: Temp Pulse Resp BP Pulse Ox 98.0 F 72 16 131/61 H 90 L 07/07/19 07:54 07/07/19 07:54 07/07/19 07:54 07/07/19 07:54 07/07/19 07:54 Intake & Output 07/06/19 07/07/19 07/08/19 06:59 06:59 06:59 Intake Total 2200 8234 Output Total 1835 Balance 2200 6399 Weight 93.4 kg 103.1 kg General appearance: PRESENT: no acute distress, other - Overall appearance improved GI/Abdominal exam: PRESENT: other - Soft, nontender; drain removed uneventfully; operative sites with dry dressings. Results Laboratory Results: 07/07/19 04:29 07/07/19 04:29 07/07/19 07/07/19 04:29 04:29 WBC 14.0 H RBC 3.19 L Hgb 9.3 L Hct 28.1 L MCV 88 MCH 29.1 MCHC 33.1 RDW 14.0 Plt Count 207 Seg Neutrophils % 81.6 H Sodium 138.5 Potassium 3.4 L Chloride 107 Carbon Dioxide 23 Anion Gap 9 BUN 14 Creatinine 1.11 Est GFR ( Amer) > 60 Glucose 148 H Calcium 7.9 L Impressions: Abdomen Ultrasound 07/05/19 14:49 IMPRESSION: Cholelithiasis. Thickened gallbladder wall and pericholecystic fluid. Negative sonographic Aguilar sign. Findings remain suspicious for acute cholecystitis. Chest X-Ray 07/05/19 16:37 IMPRESSION: NO ACUTE RADIOGRAPHIC FINDING IN THE CHEST. Assessment & Plan - Diagnosis (1) Acute cholecystitis Is this a current diagnosis for this admission?: Yes Plan: Impression: 1 day status post laparoscopic cholecystectomy by Dr. Salazar, with drain placement, doing well, tolerating a diet, ambulating, voiding; drain removed; no postoperative complications. Recommendations: 1. Dissipate some drainage from drain site; apply 4 x 4's 2. Patient to shower 3. Patient to take Tylenol as needed pain 4. [facility].
[2019-07-08 13:53] LABS: WHITE BLOOD COUNT 33.3 10^3/uL (4.0-10.5)
[2019-07-09 16:43] LABS: PATH REVIEW PATHOLOGIST REVIEWED
== END 2019-07-07 10:35 | disposition home or self-care (01) | DRG 418 ==
LOC: ER 13:24 → EH 16:56 → 3W 20:28
PROVIDERS: ADMIT Internal Medicine; ATTEND Internal Medicine
PROC: 0FN44ZZ Release Gallbladder, Percutaneous Endoscopic Approach (ICD-10-PCS; 2019-07-06)
PROC: 0W9G40Z Drainage of Peritoneal Cavity with Drainage Device, Percutaneous Endoscopic Approach (ICD-10-PCS; 2019-07-06)
PROC: 0FT44ZZ Resection of Gallbladder, Percutaneous Endoscopic Approach (ICD-10-PCS; principal; 2019-07-06 08:30)
DX: K80.00 Calculus of gallbladder with acute cholecystitis without obstruction (principal); N17.9 Acute kidney failure, unspecified; E78.5 Hyperlipidemia, unspecified; I10 Essential (primary) hypertension; K82.8 Other specified diseases of gallbladder; E66.9 Obesity, unspecified; E11.9 Type 2 diabetes mellitus without complications; D72.829 Elevated white blood cell count, unspecified; E86.0 Dehydration; Z86.73 Personal history of transient ischemic attack (TIA), and cerebral infarction without residual deficits; Z82.49 Family history of ischemic heart disease and other diseases of the circulatory system; Z83.3 Family history of diabetes mellitus; Z79.84 Long term (current) use of oral hypoglycemic drugs
CPT/HCPCS: 36415; 71045; 76705; 790; 80048; 80053; 81001; 82962; 83036; 83605; 83690; 85025; 87040; 88304; 93005; 93010; 96360; 99285; J0131; J1170; J1815; J1885; J2250; J2405; J2543; J2704; J2710; J2765; J3490; J7030; J7050; S0164